=== PATIENT | male | born 1990 | race Hispanic/Latino ===

== ENCOUNTER 2018-04-28 12:17 | Emergency (ER) | payer OTHER ==
[2018-04-28] MEDS ORDERED: HYDROcodone/Acetaminophen 5/325 mg Tablet ONE (13:21)
--- NOTE | 2018-04-28 13:23 | RAD ---
RIGHT FOREARM 2 VIEWS: HISTORY: Right arm trapped between 2 pipes. Obvious deformity. COMPARISON: None. FINDINGS: No radiopaque foreign body. No fracture. No cortical irregularity or periosteal reaction. IMPRESSION: No posttraumatic change in the right forearm. POS: ALEXANDR
== END 2018-04-28 13:30 | disposition home or self-care (01) ==
LOC: ERS 12:17
DX: S50.11XA Contusion of right forearm, initial encounter (principal); W23.0XXA Caught, crushed, jammed, or pinched between moving objects, initial encounter; Y92.65 Oil rig as the place of occurrence of the external cause; Y99.0 Civilian activity done for income or pay

== ENCOUNTER 2018-06-23 11:37 | Outpatient (CLI) | payer SELFPAY ==
[2018-06-23 13:03] LABS: #Eosinphils 0.2 thou/uL (0.0-0.7); #Lymphocytes 2.4 thou/uL (1.20-3.40); #Monocytes 0.5 thou/uL (0.11-0.59); #Neutrophils 3.5 thou/uL (1.40-6.50); %Basophils 0.4 % (0.0-1.0); %Eosinophils 3.5 % (0.0-10.0); %Lymphocytes 36.1 % (21.0-51.0); %Monocytes 7.7 % (0.0-10.0); %Neutrophils 52.4 % (42.0-75.0); Hemoglobin 15.5 g/dL (14.0-18.0); Mean Corpuscular HGB CONC 33.4 g/dL (32.0-36.0); Mean Corpuscular Hemoglobin 29.2 pg (27.0-31.0); Mean Corpuscular Volume 87.7 fL (78.0-98.0); Mean Platelet Volume 8.1 fL (7.4-10.4); Platelet Count 221 thou/uL (130-400); White Blood Cell (WBC) Count 6.7 thou/uL (4.8-10.8)
== END 2018-06-23 11:38 | disposition home or self-care (01) ==
LOC: LABBT 11:37
PROVIDERS: ATTEND Orthopaedic Surgery Hand Surgery
DX: Z01.812 Encounter for preprocedural laboratory examination (principal); M25.839 Other specified joint disorders, unspecified wrist; M65.9 Synovitis and tenosynovitis, unspecified; S63.591D Other specified sprain of right wrist, subsequent encounter
CPT/HCPCS: 85025; 85652

== ENCOUNTER 2018-10-17 15:41 | Outpatient (CLI) | payer SELFPAY ==
[2018-10-17 16:40] LABS: #Eosinphils 0.2 thou/uL (0.0-0.7); #Lymphocytes 2.5 thou/uL (1.20-3.40); #Monocytes 0.7 thou/uL (0.11-0.59); #Neutrophils 4.8 thou/uL (1.40-6.50); %Basophils 0.2 % (0.0-1.0); %Eosinophils 2.2 % (0.0-10.0); %Lymphocytes 30.7 % (21.0-51.0); %Monocytes 8.9 % (0.0-10.0); Mean Corpuscular HGB CONC 33.7 g/dL (32.0-36.0); Mean Corpuscular Hemoglobin 29.1 pg (27.0-31.0); Mean Corpuscular Volume 86.4 fL (78.0-98.0); Mean Platelet Volume 8.5 fL (7.4-10.4); Platelet Count 199 thou/uL (130-400); RBC Distribution Width 12.1 % (11.5-14.5); Red Blood Cell (RBC) Count 4.81 mill/uL (4.70-6.10); White Blood Cell (WBC) Count 8.3 thou/uL (4.8-10.8)
== END 2018-10-17 15:42 | disposition home or self-care (01) ==
LOC: LABBT 15:41
PROVIDERS: ATTEND Orthopaedic Surgery Hand Surgery
DX: Z01.812 Encounter for preprocedural laboratory examination (principal); S63.591A Other specified sprain of right wrist, initial encounter; M25.831 Other specified joint disorders, right wrist; M65.9 Synovitis and tenosynovitis, unspecified
CPT/HCPCS: 85025; 85652

== ENCOUNTER 2018-10-21 05:58 | Day surgery (SDC) | payer SELFPAY ==
[2018-10-21] MEDS ORDERED: Bupivacaine PF 0.5% 30 ML VIAL ONE (09:06)
[2018-10-21] MEDS ORDERED: Bacitracin Zinc Ointment 30 gm TUBE ONE (09:06)
[2018-10-21] MEDS ORDERED: EPINEPHrine 1 MG/ML AMP ONE (09:06)
[2018-10-21] MEDS ORDERED: Sodium Chloride 0.9% 0 ML ONE (09:08)
[2018-10-21] MEDS ORDERED: Fentanyl 100 MCG/2 ML VIAL ONE (09:14)
[2018-10-21] MEDS ORDERED: Betamet Acet/Betamet Na Ph 30 MG/5 ML VIAL ONE (10:04)
[2018-10-21] MEDS ORDERED: Ropivacaine 0.2% HCl/PF (40 MG/20 ML VIAL) ONE (12:59)
[2018-10-21] MEDS ORDERED: Ropivacaine 0.5% HCl/PF (150 MG/30 ML VIAL) ONE (12:59)
--- NOTE | 2018-10-21 13:16 | RAD ---
EXAM: Right forearm: 2 views 2 fluoroscopic views were presented from OR. INDICATIONS: Intraoperative imaging during internal fixation procedure. COMPARISON: None. FINDINGS: Plate and screws transfix the ulnar diaphysis
[2018-10-21] MEDS ORDERED: PHENYLEPHRINE-NS 100 MCG/ML 10 ML SYRINGE ONE (13:40)
[2018-10-21] MEDS ORDERED: PROPOFOL 200 MG/20 ML VIAL ONE (13:40)
[2018-10-21] MEDS ORDERED: ePHEDrine 50 MG/ML VIAL ONE (13:40)
[2018-10-21] MEDS ORDERED: Ondansetron PF 4 MG/2 ML Vial ONE (13:40)
[2018-10-21] MEDS ORDERED: Lidocaine 1% PF 5 ML VIAL ONE (13:40)
[2018-10-21] MEDS ORDERED: Ketorolac Tromethamine 30 MG/ML VIAL ONE ×2 (13:40→14:24)
[2018-10-21] MEDS ORDERED: Dexamethasone 4 mg/ml Vial ONE (14:09)
--- NOTE | 2018-10-22 11:07 | OP ---
DATE OF PROCEDURE: 10/21/2018 PREOPERATIVE DIAGNOSES: 1. Carpal tunnel syndrome on the right. 2. Guyon canal level wrist ulnar nerve compression. 3. 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 4. Central tear degenerative type triangular fibrocartilage. 5. Lunate chondromalacia. 6. Synovitis of wrist with ulnocarpal impingement. PROCEDURES PERFORMED: 1. Open carpal tunnel release. 2. Open Guyon canal level/ulnar wrist level neuroplasty release of ulnar nerve. 3. Arthroscopic wrist synovectomy, complete. 4. Arthroscopic wrist triangular fibrocartilage complex resection of tear central grade 2B. 5. Open Rayhack ulnar shortening osteotomy. 6. C-arm supervision. 7. Open extensor carpi ulnaris tenosynovectomy. 8. Arthroscopic wrist chondroplasty. 9. Short-arm splint application. 10. Rayhack ulnar shortening osteotomy open. 11. Application of short arm splint. FINDINGS: 1. TFCC to be 1.0 cm tear central. 2. 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 INDICATIONS FOR PROCEDURE: The patient with wrist pain, numbness and tingling to the ulnar digits, all failed conservative treatment with the MRI exam consistent with TFCC tear degenerative, ECU sheath tendinitis, and evidence of compression of the median nerve and ulnar nerve at the wrist. DESCRIPTION OF PROCEDURE: After successful general endotracheal anesthesia, we had the limb prepped and draped. A formal time-out and the listed procedures matched the consented procedures. The limb and site matched as well. We then outlined a zigzag incision slightly ulnar to flexor carpi radialis and 3 cm proximal to the volar wrist flexion crease carried parallel to wrist flexion crease and brought onto the curvature of the hypothenar eminence edge. We carried the skin and subcutaneous tissue, identified the ulnar neurovascular bundle 3 cm proximal to Guyon canal, began to release it. Very thick fascia at the level of pisiform including the triangular type band from the pisiform and the FCR insertion all the way to the flexor carpi ulnaris, FCU insertion all the way to the fascia of the transcarpal ligament compressing the ulnar nerve. The nerve was also along with the artery compress. We performed this release and carried the release to include the transverse carpal ligament attachment to the pisiform and carried this 3 cm distal until we saw there was no lipoma of the impinging mass. We then removed our attention slightly 2 cm more radial and did the same type procedure transcarpal ligament releasing it as well. We then placed 3 mL of Celestone here, released the tourniquet at approximately 20 minutes and then we were able to obtain hemostasis. We closed this wound very dry with interrupted 4-0 nylon in a mattress pattern. No retinaculum was repaired. We then turned our attention to the primary incision site and placed the Arthrex wrist tower with appropriate traction, outlined the 2, 3 port beginning just distal to Ruth tubercle at the radiocarpal joint and then the 6U and 6R on both sides, extensor carpi ulnaris tendon. We established all 3 portals. Panoramic view of the wrist revealed marked synovitis from the 2-3 viewing portal, so we stayed here viewing and then performed synovectomy throughout the entire wrist. This allowed us to see from the ulnar view and 6R portal, the TFCC tear which was sort of linear and only about 2 to 3 mm, but we used a combination of portals to trim it to a stable rim approximately 5 mm in diameter. There was no further synovial inflammation, looked at the lunate and the triquetrum and in the lunate corner had a chondromalacia piece almost 3 to 4 mm with stage III in thickness and we removed this with the shaver. We now had a stable environment inside the intra-articular wrist. We removed the arthroscope, closed the portals and then outlined a zigzag incision as long as the Rayhack plate beginning 3 cm proximal to the ulnar styloid tip, carried this through skin and subcutaneous tissue, protecting all neurovascular structures until we opened the fascia and then subperiosteal dissected down to the bone. We placed a Rayhack plate on the bone and placed 4 screws appropriately with the plate well centered in the frontal sagittal plane. We moved the screws and kept them on the back table in order, and then through the same holes placed the Rayhack cut device. We then cut a 2 mm wedge using the maximal ulnar depth guide, removed a wedge and a cutting device, replied the plate, and then had the coaptation device for reduction in place with slightly larger screws that were measured. Then, we had excellent apposition, placed lag screw and tapped. We then placed 2 screws distal, and we lost no fixation. We removed the coaptation/reduction device and then placed shorter screws in the third and fourth holes demonstrating to the staff. The screws were now bent that had initially been used to hold the reduction device. The patient then had the attention turned in a zigzag fashion, extensor carpi ulnaris tendon beginning directly out to the ulna and then coursing to its insertion on the base of the small finger. We identified the cutaneous branch ulnar nerve protected it. We opened the sheath, found several fraying longitudinal tags, which we resected along with the thick tenosynovium, which we performed a tenosynovectomy and made appropriate thickness. We then placed Celestone here, released the tourniquet hemostasis, closed the sheath again with running 5-0 Prolene, closed subcutaneous tissue here and at the proximal wound with running 4-0 Monocryl undyed subcutaneous. Deep closure over the plate was accomplished with fascia closure using 0 Vicryl in a running fashion. Hemostasis was excellent, and so we then closed the skin with interrupted 4-0 nylon simple pattern. In both the ulnar incisions, we placed a bulky dressing with bacitracin Adaptic, 4x4, Kerlix, and then a sugar-tong long-arm splint was applied. The patient then left the operating room to recovery room, where we received the block for long-term relief without evidence of anesthetic or operative complication. Job ID: [id number]
== END 2018-10-21 15:55 | disposition home or self-care (01) ==
LOC: SDC 05:58
PROVIDERS: ATTEND Orthopaedic Surgery Hand Surgery
PROC: 0PSK04Z Reposition Right Ulna with Internal Fixation Device, Open Approach (ICD-10-PCS; principal; 2018-10-21)
PROC: 01N40ZZ Release Ulnar Nerve, Open Approach (ICD-10-PCS; principal; 2018-10-21)
PROC: 0RBN4ZZ Excision of Right Wrist Joint, Percutaneous Endoscopic Approach (ICD-10-PCS; principal; 2018-10-21)
PROC: 0LT50ZZ Resection of Right Lower Arm and Wrist Tendon, Open Approach (ICD-10-PCS; principal; 2018-10-21)
PROC: 01N50ZZ Release Median Nerve, Open Approach (ICD-10-PCS; principal; 2018-10-21)
PROC: 0MB54ZZ Excision of Right Wrist Bursa and Ligament, Percutaneous Endoscopic Approach (ICD-10-PCS; principal; 2018-10-21)
DX: S63.591A Other specified sprain of right wrist, initial encounter (principal); G56.01 Carpal tunnel syndrome, right upper limb; G56.21 Lesion of ulnar nerve, right upper limb; M65.841 Other synovitis and tenosynovitis, right hand; M25.831 Other specified joint disorders, right wrist; M94.231 Chondromalacia, right wrist
CPT/HCPCS: 76000; 88304; C1713; J0171; J0690; J0702; J1100; J1885; J3010; J3490; S0020